=== PATIENT | female | born 1955 | race Native Hawaiian/Other Pacific Islander ===

== ENCOUNTER 2016-09-10 13:29 | Outpatient (CLI) | payer OTHER | END 2016-09-10 22:10 | disposition home or self-care (01) | LOC: LAB 13:29 | DX: R05 Cough (principal); R06.02 Shortness of breath | CPT/HCPCS: 87070; 87077; 87186; 87205 ==

== ENCOUNTER 2016-11-08 11:13 | Outpatient (CLI) | payer OTHER ==
[~2016-11-08] VITALS: Ht 167.6 cm; Wt 79.8 kg
[2016-11-08 11:25] VITALS: BP 137/79; TEMP 99
== END 2016-11-08 12:13 | disposition home or self-care (01) ==
LOC: INF 11:13
DX: M81.0 Age-related osteoporosis without current pathological fracture (principal)
CPT/HCPCS: 36415; 82310; 96372; J0897

== ENCOUNTER 2017-01-28 16:55 | Outpatient (CLI) | payer OTHER | END 2017-01-28 20:01 | disposition home or self-care (01) | LOC: LAB 16:55 | DX: R05 Cough (principal) | CPT/HCPCS: 87070; 87205 ==

== ENCOUNTER 2017-04-22 12:41 | Outpatient (CLI) | payer OTHER | END 2017-04-22 13:45 | disposition home or self-care (01) | LOC: LAB 12:41 | DX: R05 Cough (principal) | CPT/HCPCS: 87070; 87077; 87186; 87205 ==

== ENCOUNTER 2017-05-30 13:36 | Outpatient (CLI) | payer OTHER | END 2017-05-30 19:26 | disposition home or self-care (01) | LOC: LAB 13:36 | DX: R05 Cough (principal); J44.9 Chronic obstructive pulmonary disease, unspecified; J42 Unspecified chronic bronchitis | CPT/HCPCS: 87070; 87077; 87186; 87205 ==

== ENCOUNTER 2017-07-29 10:10 | Outpatient (CLI) | payer OTHER ==
[~2017-07-29] VITALS: Ht 167.6 cm; Wt 78.5 kg
[2017-07-29 10:50] VITALS: BP 127/62; TEMP 98.7
== END 2017-07-29 11:37 | disposition home or self-care (01) ==
LOC: INF 10:10
DX: M81.0 Age-related osteoporosis without current pathological fracture (principal)
CPT/HCPCS: 36415; 82310; 96372; J0897

== ENCOUNTER 2017-11-30 10:56 | Outpatient (CLI) | payer OTHER | END 2017-11-30 11:12 | disposition short-term general hospital (02) | LOC: AMB 10:56 | DX: I95.89 Other hypotension (principal) | CPT/HCPCS: A0425; A0427 ==

== ENCOUNTER 2018-01-10 10:39 | Outpatient (CLI) | payer OTHER | END 2018-01-10 22:37 | disposition home or self-care (01) | LOC: US 10:39 | DX: I73.89 Other specified peripheral vascular diseases (principal); L03.115 Cellulitis of right lower limb ==

== ENCOUNTER 2018-03-10 13:41 | Outpatient (CLI) | payer OTHER ==
[2018-03-10 14:03] LABS: PLATELET COUNT 240 K/uL (152-353)
[2018-03-10 14:27] LABS: POTASSIUM 3.9 mmol/L (3.6-5.2)
== END 2018-03-10 23:06 | disposition home or self-care (01) ==
LOC: LAB 13:41
PROVIDERS: Internal Medicine Infectious Disease
DX: A41.53 Sepsis due to Serratia (principal); R78.81 Bacteremia; L97.512 Non-pressure chronic ulcer of other part of right foot with fat layer exposed
CPT/HCPCS: 80053; 85027

== ENCOUNTER 2018-03-17 11:14 | Outpatient (CLI) | payer OTHER ==
[2018-03-17 12:10] LABS: PLATELET COUNT 227 K/uL (152-353)
[2018-03-17 12:55] LABS: POTASSIUM 3.6 mmol/L (3.6-5.2)
== END 2018-03-17 20:30 | disposition home or self-care (01) ==
LOC: LAB 11:14
PROVIDERS: Internal Medicine Infectious Disease
DX: J18.9 Pneumonia, unspecified organism (principal)
CPT/HCPCS: 80053; 85027

== ENCOUNTER 2018-03-24 14:35 | Outpatient (CLI) | payer OTHER ==
[2018-03-24 15:18] LABS: PLATELET COUNT 228 K/uL (152-353)
[2018-03-24 15:49] LABS: POTASSIUM 3.5 mmol/L (3.6-5.2)
== END 2018-03-24 22:03 | disposition home or self-care (01) ==
LOC: LAB 14:35
PROVIDERS: Internal Medicine Infectious Disease
DX: A41.53 Sepsis due to Serratia (principal); R78.81 Bacteremia
CPT/HCPCS: 80053; 85027

== ENCOUNTER 2018-04-03 12:21 | Outpatient (CLI) | payer OTHER ==
[2018-04-03 12:36] LABS: PLATELET COUNT 252 K/uL (152-353)
== END 2018-04-03 23:18 | disposition home or self-care (01) ==
LOC: LAB 12:21
PROVIDERS: Internal Medicine Infectious Disease
DX: J18.9 Pneumonia, unspecified organism (principal)
CPT/HCPCS: 80053; 85027

== ENCOUNTER 2018-04-08 10:48 | Outpatient (CLI) | payer OTHER ==
[2018-04-08 11:01] LABS: PLATELET COUNT 319 K/uL (152-353)
[2018-04-08 11:27] LABS: POTASSIUM 4.4 mmol/L (3.6-5.2)
== END 2018-04-08 20:00 | disposition home or self-care (01) ==
LOC: LAB 10:48
PROVIDERS: Internal Medicine Infectious Disease
DX: J18.9 Pneumonia, unspecified organism (principal)
CPT/HCPCS: 80053; 85027; 86140

== ENCOUNTER 2018-05-19 10:53 | Outpatient (CLI) | payer OTHER ==
[2018-05-19 11:07] LABS: PLATELET COUNT 273 K/uL (152-353)
[2018-05-19 11:19] LABS: POTASSIUM 3.9 mmol/L (3.6-5.2)
== END 2018-05-19 23:29 | disposition home or self-care (01) ==
LOC: LAB 10:53
PROVIDERS: Internal Medicine
DX: L03.115 Cellulitis of right lower limb (principal); J18.9 Pneumonia, unspecified organism
CPT/HCPCS: 80053; 80202; 85027

== ENCOUNTER 2018-05-27 10:44 | Outpatient (CLI) | payer OTHER ==
[2018-05-27 10:55] LABS: PLATELET COUNT 399 K/uL (152-353)
[2018-05-27 11:31] LABS: POTASSIUM 4.2 mmol/L (3.6-5.2)
== END 2018-05-27 23:04 | disposition home or self-care (01) ==
LOC: LAB 10:44
PROVIDERS: Internal Medicine
DX: L03.115 Cellulitis of right lower limb (principal); J18.9 Pneumonia, unspecified organism
CPT/HCPCS: 80053; 80202; 85027

== ENCOUNTER 2018-05-29 09:42 | Outpatient (CLI) | payer OTHER | END 2018-05-29 20:33 | disposition home or self-care (01) | LOC: LAB 09:42 | DX: L03.115 Cellulitis of right lower limb (principal); J18.9 Pneumonia, unspecified organism | CPT/HCPCS: 80202 ==

== ENCOUNTER 2018-06-02 11:00 | Outpatient (CLI) | payer OTHER ==
[2018-06-02 11:30] LABS: POTASSIUM 4.2 mmol/L (3.6-5.2)
[2018-06-02 11:35] LABS: PLATELET COUNT 318 K/uL (152-353)
== END 2018-06-02 19:56 | disposition home or self-care (01) ==
LOC: LAB 11:00
PROVIDERS: Internal Medicine
DX: J18.9 Pneumonia, unspecified organism (principal); L03.115 Cellulitis of right lower limb; A41.02 Sepsis due to Methicillin resistant Staphylococcus aureus; A41.53 Sepsis due to Serratia
CPT/HCPCS: 80053; 80202; 85027

== ENCOUNTER 2018-06-09 12:15 | Outpatient (CLI) | payer OTHER ==
[2018-06-09 12:42] LABS: PLATELET COUNT 220 K/uL (152-353)
[2018-06-09 14:11] LABS: POTASSIUM 3.6 mmol/L (3.6-5.2)
== END 2018-06-09 19:23 | disposition home or self-care (01) ==
LOC: LAB 12:15
PROVIDERS: Internal Medicine
DX: L03.115 Cellulitis of right lower limb (principal); J18.9 Pneumonia, unspecified organism
CPT/HCPCS: 80053; 80202; 85027

== ENCOUNTER 2018-06-16 10:20 | Outpatient (CLI) | payer OTHER ==
[2018-06-16 10:32] LABS: PLATELET COUNT 198 K/uL (152-353)
== END 2018-06-16 19:53 | disposition home or self-care (01) ==
LOC: LAB 10:20
PROVIDERS: Internal Medicine
DX: L03.115 Cellulitis of right lower limb (principal); J18.9 Pneumonia, unspecified organism
CPT/HCPCS: 80053; 80202; 85027

== ENCOUNTER 2018-06-23 11:25 | Outpatient (CLI) | payer OTHER ==
[2018-06-23 11:48] LABS: PLATELET COUNT 241 K/uL (152-353)
== END 2018-06-23 20:01 | disposition home or self-care (01) ==
LOC: LAB 11:25
PROVIDERS: Internal Medicine
DX: L03.115 Cellulitis of right lower limb (principal); J18.9 Pneumonia, unspecified organism
CPT/HCPCS: 80053; 80202; 85027

== ENCOUNTER 2018-11-24 10:56 | Outpatient (CLI) | payer OTHER ==
[2018-11-24 11:47] LABS: POTASSIUM 4.2 mmol/L (3.6-5.2)
[2018-11-24 12:10] LABS: PLATELET COUNT 263 K/uL (152-353)
== END 2018-11-24 23:29 | disposition home or self-care (01) ==
LOC: LAB 10:56
PROVIDERS: Internal Medicine
DX: J15.5 Pneumonia due to Escherichia coli (principal)
CPT/HCPCS: 80053; 80202; 85027; 85651; 86140

== ENCOUNTER 2018-12-01 12:13 | Outpatient (CLI) | payer OTHER ==
[2018-12-01 12:37] LABS: PLATELET COUNT 227 K/uL (152-353)
== END 2018-12-01 23:02 | disposition home or self-care (01) ==
LOC: LAB 12:13
PROVIDERS: Internal Medicine
DX: J15.5 Pneumonia due to Escherichia coli (principal); Z79.2 Long term (current) use of antibiotics
CPT/HCPCS: 80053; 80202; 85027; 85651; 86140

== ENCOUNTER 2019-03-09 16:52 | Outpatient (CLI) | payer OTHER | END 2019-03-09 22:43 | disposition home or self-care (01) | LOC: LAB 16:52 | DX: J16.8 Pneumonia due to other specified infectious organisms (principal); J20.9 Acute bronchitis, unspecified; J42 Unspecified chronic bronchitis | CPT/HCPCS: 87070; 87077; 87186; 87205 ==

== ENCOUNTER 2019-06-04 09:50 | Outpatient (CLI) | payer OTHER | END 2019-06-04 20:33 | disposition home or self-care (01) | LOC: LABW 09:50 | DX: R05 Cough (principal); J20.9 Acute bronchitis, unspecified | CPT/HCPCS: 87070; 87077; 87186; 87205 ==

== ENCOUNTER 2019-07-01 08:39 | Outpatient (CLI) | payer OTHER ==
[~2019-07-01] VITALS: Ht 167.6 cm; Wt 70.3 kg
[2019-07-01 08:50] VITALS: BP 139/63; TEMP 99
== END 2019-07-01 09:35 | disposition home or self-care (01) ==
LOC: INF 08:39
DX: M81.0 Age-related osteoporosis without current pathological fracture (principal)
CPT/HCPCS: 36415; 82310; 96372; J0897

== ENCOUNTER 2020-01-12 09:12 | Outpatient (CLI) | payer OTHER ==
[~2020-01-12] VITALS: Ht 167.6 cm; Wt 70.8 kg
[2020-01-12 09:45] VITALS: BP 110/52; TEMP 99.7
== END 2020-01-12 10:45 | disposition home or self-care (01) ==
LOC: RAD 09:12 → INF 09:12
DX: M81.0 Age-related osteoporosis without current pathological fracture (principal)
CPT/HCPCS: 36415; 82310; 96372; J0897

== ENCOUNTER 2020-04-28 13:35 | Outpatient (CLI) | payer OTHER | END 2020-04-28 21:52 | disposition home or self-care (01) | LOC: LAB 13:35 | DX: R05 Cough (principal) | CPT/HCPCS: 87070; 87077; 87186; 87205 ==

== ENCOUNTER 2021-03-21 18:23 | Outpatient (CLI) | payer OTHER | END 2021-03-21 20:42 | disposition home or self-care (01) | LOC: LABW 18:23 | PROVIDERS: ATTEND Internal Medicine | DX: J18.9 Pneumonia, unspecified organism (principal) | CPT/HCPCS: 87070; 87077; 87186; 87205 ==

== ENCOUNTER 2021-04-03 12:53 | Outpatient (CLI) | payer OTHER | END 2021-04-03 21:46 | disposition home or self-care (01) | LOC: RESP 12:53 | PROVIDERS: ATTEND Internal Medicine Sleep Medicine | DX: J98.4 Other disorders of lung (principal) ==

== ENCOUNTER 2021-05-24 08:59 | Outpatient (CLI) | payer OTHER | END 2021-05-24 19:01 | disposition home or self-care (01) | LOC: RAD 08:59 | PROVIDERS: ATTEND Internal Medicine | DX: M85.88 Other specified disorders of bone density and structure, other site (principal) ==

== ENCOUNTER 2021-06-05 09:03 | Outpatient (CLI) | payer OTHER ==
[~2021-06-05] VITALS: Ht 167.6 cm; Wt 70.3 kg
[2021-06-05 10:15] VITALS: BP 137/66; TEMP 98
== END 2021-06-05 19:30 | disposition home or self-care (01) ==
LOC: INF 09:03
PROVIDERS: ATTEND Internal Medicine Endocrinology, Diabetes & Metabolism
DX: M81.0 Age-related osteoporosis without current pathological fracture (principal)
CPT/HCPCS: 36415; 82310; 96372; J0897

== ENCOUNTER 2021-09-18 12:54 | Outpatient (CLI) | payer OTHER | END 2021-09-18 22:09 | disposition home or self-care (01) | LOC: RAD 12:54 | PROVIDERS: ATTEND Internal Medicine | DX: Z01.818 Encounter for other preprocedural examination (principal) ==

== ENCOUNTER 2021-10-10 10:31 | Outpatient (CLI) | payer OTHER ==
[2021-10-10 11:04] LABS: POTASSIUM 4.1 mmol/L (3.6-5.2)
== END 2021-10-10 19:00 | disposition home or self-care (01) ==
LOC: LABW 10:31
PROVIDERS: ATTEND Nurse Practitioner Family
DX: J18.9 Pneumonia, unspecified organism (principal); I25.118 Atherosclerotic heart disease of native coronary artery with other forms of angina pectoris; E78.49 Other hyperlipidemia; E11.9 Type 2 diabetes mellitus without complications; R06.02 Shortness of breath
CPT/HCPCS: 36415; 80048; 80061; 83880

== ENCOUNTER 2022-01-17 13:23 | Outpatient (CLI) | payer OTHER | END 2022-01-17 19:14 | disposition home or self-care (01) | LOC: LABW 13:23 | PROVIDERS: ATTEND Nurse Practitioner Family | DX: J18.9 Pneumonia, unspecified organism (principal) | CPT/HCPCS: 87070; 87205 ==